=== PATIENT | female | born 1980 | race Caucasian/White ===

== ENCOUNTER → 2019-11-13 09:29 | Outpatient (CLI) | payer OTHER, SELFPAY ==
[2019-11-13 15:07] VITALS: BMI 40.8
== END ==
PROVIDERS: Visit Provider Nurse Practitioner
DX: I10 Essential (primary) hypertension (principal); I25.10 Atherosclerotic heart disease of native coronary artery without angina pectoris; E78.5 Hyperlipidemia, unspecified; R63.5 Abnormal weight gain

== ENCOUNTER → 2019-12-12 13:45 | Outpatient (CLI) | payer OTHER, SELFPAY ==
[2019-11-27 11:40] VITALS: BMI 40.8
--- NOTE | 2019-12-12 13:47 | ECHOD_ITS ---
Reason For Study: SOB Procedure This was a 2D Doppler, Color Flow transthoracic echocardiogram. Exam performed in department. Left Ventricle Normal LV size. Left ventricular systolic function is normal. The estimated ejection fraction is 55 %. Normal diastology for age. No regional wall motion abnormalities noted. Right Ventricle Normal RV size. Normal systolic function. Atria Normal left atrium. Normal right atrium. Mitral Valve Normal mitral valve. Tricuspid Valve Normal tricuspid valve. Aortic Valve Normal aortic valve. Trisinus/trileaflet aortic valve. Pulmonic Valve Normal pulmonic valve. Great Vessels Normal aortic root. The pulmonary artery is normal size. Normal inferior vena cava. Pericardium/Pleural No pericardial effusion. MMode/2D Measurements & Calculations LVIDd: 4.4 cm IVSd: 1.1 cm Ao root diam: 3.4 cm LVIDs: 2.9 cm LVPWd: 1.1 cm RVDd: 3.1 cm FS: 33.2 % LAV(MOD-bp): 39.2 ml LA A4 area: 15.6 cm2 LA dimension(2D): 3.8 cm LAV(MOD-bp) Indexed: 16.5 ml/m2 LAV(MOD-sp2): 37.5 ml LAV(MOD-sp4): 36.2 ml RA A4 area: 15.8 cm2 Doppler Measurements & Calculations MV E max dipak: 62.7 cm/sec Lat Peak E' Dipak: 14.4 cm/sec Med Peak E' Dipak: 7.4 cm/sec MV A max dipak: 57.8 cm/sec E/E' lat: 4.4 E/E' med: 8.4 MV E/A: 1.1 Ao V2 max: 137.9 cm/sec LV V1 max: 109.8 cm/sec PA V2 max: 99.5 cm/sec Ao max P.6 mmHg LV V1 max P.8 mmHg Interpretation Summary Normal LV size. Left ventricular systolic function is normal. The estimated ejection fraction is 55 %. Structurally normal valves. Ordering Physician: Erasto Velasco Referring Physician: Regla Diaz Performed By: Leslie Burns RDCS
== END ==
PROVIDERS: PCP Nurse Practitioner; Referring Provider Internal Medicine Cardiovascular Disease; Visit Provider Internal Medicine Cardiovascular Disease
DX: R06.00 Dyspnea, unspecified (principal); R06.02 Shortness of breath
CPT/HCPCS: 93306

== ENCOUNTER → 2023-07-11 | Outpatient (CLI) | payer OTHER, SELFPAY ==
--- NOTE | 2023-07-11 10:47 | VDLE_ITS ---
Reason For Study: BLE Pain RIGHT LEFT CFV is compressible, spontaneous, phasic, CFV is compressible, phasic, and INCOMPETENT competent and demonstrates normal for greater than 1.0 second. augmentation. FV is compressible, spontaneous, phasic, FV is compressible, spontaneous, phasic, competent and demonstrates normal competent and demonstrates normal augmentation. augmentation. POP V is compressible, spontaneous, phasic, POP V is compressible, spontaneous, phasic, competent and demonstrates normal competent and demonstrates normal augmentation. augmentation. T/P Trunk is compressible. T/P Trunk is compressible. PTV is compressible. PTV is compressible. LT PerV is compressible. RT PerV is compressible. SFJ is INCOMPETENT and measures 0.69 cm. SFJ is INCOMPETENT and measures 0.95 cm. GSV proximal thigh measures 0.24 x 0.21 cm. GSV proximal thigh measures 0.31 x 0.34 cm. GSV at knee measures 0.19 x 0.24 cm. GSV at knee measures 0.24 x 0.25 cm. ASV proximal thigh is INCOMPETENT for greater GSV is competent throughout. than 0.5 seconds and measures 0.43 x 0.43 cm. Two accessory branches noted off of SFJ. SSV proximal calf is competent and measures First appears to feed prox anterior thigh 0.23 x 0.27 cm. varicosities. Second leaves fascia and Nonvascularized anechoic area in the left pop returns at the knee to feed medial knee and fossa measuring approximately 4.88cm x prox calf varicosities. 1.37cm. . ASV 1 proximal thigh is INCOMPETENT for greater than 0.5 seconds and measures 0.63 x 0.65 cm. ASV 2 mid thigh is INCOMPETENT for greater than 0.5 seconds and measures 0.60 x 0.70 cm. ASV 2 at knee is INCOMPETENT for greater than 0.5 seconds and measures 1.03 x 1.73 cm. ASV 2 proximal calf is INCOMPETENT for greater than 0.5 seconds and measures 0.38 x 0.40 cm. SSV proximal calf is competent and measures 0.24 x 0.22 cm. . Nonvascularized anechoic area in the right pop fossa measuring approximately 3.15cm x 1.62cm noted. Area appears to extend to prox calf in between fascia layers. Procedure This is a venous duplex using B-mode, color flow and spectral Doppler. Exam performed in department. The exam was diagnostic. Patient was scanned in reverse Trendelenburg position during reflux assessment. VL/Venous Duplex US - Dany Extrem Interpretation Summary Deep veins of the bilateral lower extremities are patent and compressible segme ntally. There is no evidence of bilateral lower extremity deep vein thrombosis. The bilateral great saphenous veins appear patent and compressible segmentally. Positive for reflux in the right saphenofemoral junction and two accessory saph enous veins originating from the junction. Positive for reflux in the left common femoral vein, saphenofemoral junction, a nd thigh accessory saphenous vein. Nonvascularized anechoic area in the right pop fossa measuring approximately 3. 15cm x 1.62cm noted. Area appears to extend to proximal calf in between fascia layers. Nonvascularized anechoic area in the left pop fossa measuring approximately 4.8 8cm x 1.37cm. Ordering Physician: Celeste Multani Referring Physician: Regla Diaz Performed By: Lance Harden RVT
--- OUTSIDE RECORDS SUMMARY | 2023-07-12 00:04 | XMS RPT_ITS | CCD ---
Author Name Unknown Address [address] [place] [address] Organization [facility] Care Team Providers Care Track Watchman Name Role Phone Pending Provider Unavailable Unavailable Unavailable Unavailable Lyle NEMATOLOGIST.Jess KEY Primary Care Provide r GENA VASQUEZ Referring Unavailable JESS DIAZ Primary Care Unavailable GENA VASQUEZ Attending Unavailable JESS DIAZ Primary Care Unavailable SELF Referring Unavailable JESS DIAZ Primary Care Unavailable KEVIN WELLINGTON Attending Unavailable TAIWO DIAZA Reese Primary Care Unavailable JESS DIAZ Referring Unavailable LYLE JESS Reese Primary Care Unavailable LYLE JESS L Referring Unavailable LYLE JESS L Primary Care Unavailable Medications Completed/Discontinued Medications Medication Drug Class(es) Dates Sig (Normalized) Sig (Original) amoxicillin 875 mg oral tablet (6 sources) Penicillin-class Antibacterial Start: 01-10-2015 take 1 tablet by mouth once daily Amoxicillin 875 MG Oral Tablet TAKE 1 TABLET EVERY 12 HOURS DAILY. Quantity: 20 Refills: 0 Ordered: 15-Aug-2016 Carl Milton MD Start : 15-Aug-2016 Active MULTI-VITAMIN ORAL (2 sources) MULTI-VITAMIN ORAL Take by mouth. 0 Active Problems Problem Classification Problem Date Documented Date Episodic/Chronic Chronic obstructive pulmonary disease and bronchiectasis (2 sources) Bronchitis; Translations: [Bronchitis, not specified as acute or chronic] Episodic Deficiency and other anemia (1 source) Anemia, unspecified; Translations: [Relative anemia] Onset: 03-17-2023 Episodic Diverticulosis and diverticulitis (1 source) Diverticulitis of intestine, part unspecified, without perforation or abscess without bleeding; Translations: [Diverticulitis] Onset: 07-09-2022 Chronic Mood disorders (2 sources) Depressive disorder; Translations: [Depression] 06-08-2012 Chronic Other eye disorders (2 sources) Vitreous opacities; Translations: [Other vitreous opacities, unspecified eye] Onset: 07-16-2013 07-16-2013 Chronic Other female genital disorders (2 sources) Cervical intraepithelial neoplasia grade 2; Translations: [Moderate cervical dysplasia] 06-08-2012 Episodic Other non-traumatic joint disorders (1 source) Pain in right hip; Translations: [Pain in right hip] Onset: 06-01-2023 Episodic Other nutritional; endocrine; and metabolic disorders (2 sources) Obese class II; Translations: [Obesity, unspecified] Onset: 10-31-2022 10-31-2022 Chronic Other screening for suspected conditions (not mental disorders or infectious disease) (2 sources) Patient encounter status; Translations: [Encounter for screening mammogram for malignant neoplasm of breast] Onset: 11-03-2022 Episodic Other upper respiratory disease (2 sources) Nasal discharge; Translations: [Other disease of nasal cavity and sinuses] Episodic Other upper respiratory infections (6 sources) Acute sinusitis; Translations: [Acute sinusitis, unspecified] Episodic Spondylosis; intervertebral disc disorders; other back problems (1 source) Intervertebral disc disorders with radiculopathy, lumbar region; Translations: [Intervertebral disc disorders with radiculopathy, lumbar region] Onset: 06-01-2023 Episodic Viral infection (2 sources) Herpes labialis; Translations: [Herpesviral vesicular dermatitis] 06-08-2012 Episodic Results Test Name Value Interpretation Reference Range Facil ity Vital Signs Date Time Vital Sign Value Performing Clinician Faci lity 10-31-2022 08:23-0400 Body weight 110.13 kg Gena Vasquez MD Work Phone: [facility] 10-31-2022 08:23-0400 Diastolic blood pressure 62 mm[Hg] Gena Vasquez MD Work Phone: [facility] 10-31-2022 08:23-0400 Systolic blood pressure 90 mm[Hg] Gena Vasquez MD Work Phone: [facility] 01-11-2021 14:25-0400 Body height 177.8 cm Carl Milton MD Work Phone: [facility] Work Phone: 01-11-2021 14:25-0400 Body mass index (BMI) [Ratio] 38.74 kg/m2 Carl Milton MD Work Phone: [facility] Work Phone: 01-11-2021 14:25-0400 Body surface area Derived from formula 2.37 m2 Carl Milton MD Work Phone: [facility] Work Phone: 01-11-2021 14:25-0400 Body temperature 97.8 [degF] Carl Milton MD Work Phone: [facility] Work Phone: 01-11-2021 14:25-0400 Body weight 122.47 kg Carl Milton MD Work Phone: [facility] Work Phone: 01-11-2021 14:25-0400 Diastolic blood pressure 74 mm[Hg] Carl Milton MD Work Phone: [facility] Work Phone: 01-11-2021 14:25-0400 Heart rate 98 /min Carl Milton MD Work Phone: [facility] Work Phone: 01-11-2021 14:25-0400 Respiratory rate 16 /min Carl Milton MD Work Phone: [facility] Work Phone: 01-11-2021 14:25-0400 SaO2% (BldA) [Mass fraction] 97 % Carl Milton MD Work Phone: [facility] Work Phone: 01-11-2021 14:25-0400 Systolic blood pressure 122 mm[Hg] Carl Milton MD Work Phone: [facility] Work Phone: 01-11-2021 14:0400 1 1 Carl Milton MD Work Phone: [facility] Work Phone: Encounters Encounter Date Encounter Type Care Provider Facility Start: 06-01-2023 ambulatory JESS DIAZ Facil ity:[facility] Start: 06-01-2023 End: 06-01-2023 Subsequent hospital visit by physician [facility] Procedures Date Procedure Procedure Detail Performing Clinician Start: 06-01-2023 Radex hip unilateral with pelvis 2-3 views Jess Diaz NEMATOLOGIST.DATABASE PROGRAMMER ANALYST Work Phone: Plan of Treatment Date Care Activity Detail Author Start: 11-01-2027 Screening for malignant neoplasm of cervix [facility] Start: 11-04-2023 Screening for malignant neoplasm of breast Mammogram Screening [facility] Start: 12-30-[address] [facility] Start: [address] [facility] Start: 06-08-2017 HPV TESTING HPV TESTING [facility] Start: 06-08-2017 PAP TESTING PAP TESTING [facility] Start: [address] [facility] Start: 1998 HEPATITIS C SCREENING HEPATITIS C SCREENING [facility] Start: 1998 Hepatitis C screening Hepatitis C Screening [facility] Start: 1998 HIV SCREENING HIV SCREENING [facility] Start: 1998 HIV screening HIV Screening [facility] Start: 1980 COVID-19 VACCINE (#1) COVID-19 VACCINE (#1) [facility] Start: 1980 HEPATITIS B (1 of 3 - 3-dose series) HEPATITIS B (1 of 3 - 3-dose series) [facility] Start: 1980 Hepatitis B Vaccine (1 of 3 - 3-dose series) Hepatitis B Vaccine (1 of 3 - 3-dose series) [facility] End: 11-30-2023 ANGEL SCREENING W MAXINE ANGEL SCREENING [facility] Radiology Routine Encounter for screening mammogram for breast cancer 1 Occurrences starting 10/31/2022 until 11/30/2023 [facility] Work Phone: Payers Date Payer Category Payer Private Health Insurance [employer]ALAD[employer] [id number] 2022-Present [phone] [address] [place] [address] Open Access [id number] 2022 Private Health Insurance [id number] Unknown [facility] Social History Date Type Detail Facility Start: 10-31-2022 Current some day smoker Current some day smoker [facility] Work Phone: Start: 10-31-2022 Tobacco smoking stat [facility] Ex-smoker [facility] Work Phone: History of tobacco use Current smoker [facility] Work Phone: History of tobacco use Cigarette Smoker [facility] Work Phone: Start: 10-31-2022 Tobacco use and exposure Smokeless tobacco non-user [facility] Work Phone: Start: 10-31-2022 Alcohol intake Ex-drinker (finding) [facility] Start: 07-09-2022 Tobacco Comment quit 4 years ago [facility] Start: 1980 Sex Assigned At Not on file [facility] Start: 10-31-[address] [facility] National Score (1-100), lower number is lower risk [address] [facility] Progress note 06-01-2023 Note Date & Type Note Facility 06-01-2023 Note HNO ID: [id number] Author: ASHLEIGH JUAREZ RT(R) Service: ? Author Type: Technologist Type: Progress Notes Filed: 06/01/2023 15:02 Note Text: Radiology Service Progress Note PATIENT NAME: Alexus Fleming DATE OF SERVICE: June 01, 2023 TIME: 3:02 PM PATIENT IDENTITY VERIFICATION COMPLETED USING TWO (2) IDENTIFIERS: Name and Date of confirmed by patient verbally. FALL SCREENING: Has the patient had 2 falls in the last year or 1 fall with injury or currently using an Ambulatory Assistive Device (Walker, Cane, Wheelchair, Crutches, etc.)? No PATIENT GENDER DATA: Female. status: : No status: NO. PATIENT RELEVANT IMPLANT DATA REVIEWED: Not Applicable PATIENT PRESENTS WITH AN IMPLANTABLE OR ATTACHED HOME HEALTH NURSE LICENSED PRACTICAL: No RADIOLOGY DEPARTMENT: General X-ray: Exam(s) Completed: Pelvis X-Ray: Pelvis with Hip Right PERIPHERAL IV DATA: Not applicable SIGNED BY: RT Chencho(R) June 01, 2023 3:02 PM [facility] History of Present illness Narrative 06-01-2023 Ashleigh Juarez RT(R) - 06/01/2023 2:30 PM EST Note Date & Type Note Facility 06-01-2023 History of Presen t illness Narrative Radiology Service Progress Note PATIENT NAME: Alexus Fleming DATE OF SERVICE: June 01, 2023 TIME: 3:02 PM PATIENT IDENTITY VERIFICATION COMPLETED USING TWO (2) IDENTIFIERS: Name and Date of confirmed by patient verbally. FALL SCREENING: Has the patient had 2 falls in the last year or 1 fall with injury or currently using an Ambulatory Assistive Device (Walker, Cane, Wheelchair, Crutches, etc.)? No PATIENT GENDER DATA: Female. status: : No status: NO. PATIENT RELEVANT IMPLANT DATA REVIEWED: Not Applicable PATIENT PRESENTS WITH AN IMPLANTABLE OR ATTACHED HOME HEALTH NURSE LICENSED PRACTICAL: No RADIOLOGY DEPARTMENT: General X-ray: Exam(s) Completed: Pelvis X-Ray: Pelvis with Hip Right PERIPHERAL IV DATA: Not applicable SIGNED BY: RT Chencho(R) June 01, 2023 3:02 PM documented in this encounter [facility] Progress note 11-03-2022 Note Date & Type Note Facility 11-03-2022 Note HNO ID: [id number] Author: Barbara Ellington Service: ? Author Type: Salmon Gillnet Vessel Operator Type: Progress Notes Filed: 11/03/2022 11:39 AM Note Text: Radiology Service Progress Note PATIENT NAME: Alexus Fleming DATE OF SERVICE: November 03, 2022 TIME: 11:13 AM PATIENT IDENTITY VERIFICATION COMPLETED USING TWO (2) IDENTIFIERS: Name and Date of confirmed by patient verbally. FALL SCREENING: Has the patient had 2 falls in the last year or 1 fall with injury or currently using an Ambulatory Assistive Device (Walker, Cane, Wheelchair, Crutches, etc.)? No PATIENT GENDER DATA: Female. status: : No status: NO. PATIENT RELEVANT IMPLANT DATA REVIEWED: Not Applicable RADIOLOGY DEPARTMENT: Mammography PERIPHERAL IV DATA: Not applicable SIGNED BY: Victoria Paris [employer] November 03, 2022 11:13 AM [facility] Progress note 10-31-2022 Note Date & Type Note Facility 10-31-2022 Note HNO ID: [id number] Author: Gena Vasquez MD Service: ? Author Type: Physician Type: Progress Notes Filed: 10/31/2022 10:28 AM Note Text: Alexus is a 42 year old who presents for ER follow up after diverticulitis flare AND noted a 2.5cm ovarian cyst (left); she is well overdue for an annual gynecologic exam. We can accomodate this today AND she wishes to proceed. She is with complaints, dysmenorrhea- management options reviewed, she will continue with observation. Thorough past history obtained/updated/reviewed with today's visit. Pt states changes to her past history include: diverticulitis. Box Lining Machine Feeder offered: Patient declines. She is a previously established patient of [facility]within [facility], however last seen by me more than 3 years ago (2013). Menses: cycles every ~30 days and ~5 days of moderate flow, mod dysmenorrhea (treated with NSAIDs). 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) PAST SURGICAL HISTORY Procedure Laterality Date COLONOSCOPY SCREENING CRYOCAUTERY OF CERVIX 05/01/2006 DENISA 1 OFFICE LEEP 05/01/2005 DENISA 2 FAMILY HISTORY Problem Relation Age of Onset None Mother Heart Father Heart Maternal Grandmother None Daughter None Son Breast Cancer No Family History Cervical Cancer No Family History Ovarian cancer No Family History Uterine Cancer No Family History Colon Cancer No Family History Pancreatic Cancer No Family History Prostate Cancer No Family History SOCIAL HISTORY Social History Tobacco Use Smoking status: Former Types: Cigarettes Smokeless tobacco: Never Tobacco comments: quit 4 years ago Vaping Use Vaping Use: Never used Substance Use Topics Alcohol use: Not Currently Drug use: No REVIEW OF SYSTEMS Abdomen: No abdominal pain, nausea, vomiting, diarrhea; chronic issues with constipation due to meds Bladder: No dysuria, gross hematuria, urinary frequency, urinary urgency, or incontinence. Breast: No breast lumps, nipple d/c, overlying skin changes, redness or skin retraction and +/-SBE normal. Allergies and current medication updated:Yes EXAM: BP 90/62 Wt 242 lb 12.8 oz (110.1kg) LMP 10/31/2022 GENERAL: pleasant, female in no apparent distress HEENT: Normocephalic, atraumatic, mucus membranes moist, and no lesions NECK: Supple, full range of motion, no adenopathy, and thyroid normal DERMATOLOGY: Normal, without lesions, non-icteric, and non-hirsute BREAST: soft, non-tender, symmetric, no dominant mass, normal nipple-areolar complex, no lymphadenopathy, and no nipple discharge CHEST: Clear to auscultation, Normal inspiratory effort, and Regular rate and rhythm ABDOMEN: soft, non-tender, and no masses PELVIC: external genitalia normal, normal Bartholin's glands, urethra, Thatcher's glands, no vulvar lesions, no cervical lesions, physiologic discharge present, normal appearing perineal body and perianal region BIMANUAL: uterus normal size, shape and consistency, no adnexal masses, and non-tender RECTOVAGINAL: deferred. NEURO: alert and oriented x3,exam grossly non-focal EXTREMITIES: normal ASSESSMENT/PLAN: 1) Health maintenance: Pap done with HPV. Mammogram starting age 40. Nutrition, exercise and routine health maintenance exams reviewed. Calcium/Vitamin D supplementation information provided. If has recurring issues that seem ovarian pain will consider US to further assess. 2) Contraception: vasectomy. 3) STD screening: Declined STD check. 4) Follow up one year or sooner as needed 5) Pt made aware that we will notify of Abnormal results only. I will use her MyChart as needed for results, she may contact office to get any results at her convenience. Gena Vasquez MD [facility] Instructions 10-31-2022 Patient Instructions Note Date & Type Note Facility 10-31-2022 Instructions Gena Vasquez MD - 10/31/2022 9:17 AM EDT Please call to schedule your mammogram ACOG Screening Guidelines The following health screening schedule is recommended by the [employer] (ACOG). Some of these tests may be ordered or performed by your primary care doctor. Pap test screening The pap test looks at cells on the cervix (the opening from the vagina to the uterus) to look for cancer or pre-cancerous changes. These changes are caused by the human papillomavirus (HPV). Studies estimate that half of all women will test positive for this virus within 3 years of starting sexual activity. For young women with a normal immune system, 90% of HPV infections will resolve within 2 years. There is a vaccine available against some forms of HPV. This is recommended for girls and women age 9-45. For ages 9-14, two injections are given at 0 and 6 months. For ages 15-45, three injections are given at 0,2 and 6 months. Because this vaccine does not protect against all HPV types which can cause cervical cancer, women who received the vaccine still need pap tests. Pap smear screening should be started at age 21. The pap test should be done every 3 years from age 21-29. From age 30-65, pap smears can be done every 5 years if HPV test is negative or every 3 years if HPV testing is not done. For women over the age of 65, ACOG recommends against screening women who have had adequate prior screening and are not otherwise at high risk for cervical cancer. Women who have had a hysterectomy also do not need routine pap smear screening unless the pap smear was done for a cervical cancer or moderate to severe dysplasia. Breast cancer screening Mammogram should be performed every 1-2 years starting at age 40 and every year starting at age 50. Screening may be started earlier depending on family history. Cholesterol screening Lipid panel (cholesterol test) should be checked every 5 years starting at age 45. Diabetes screening Fasting glucose (blood sugar) test should be performed every 3 years starting at age 45. Colorectal cancer screening Starting at age 45, women should have a screening colonoscopy at least every 10 years. Screening may be started earlier depending on family history. Thyroid screening Thyroid function test (TSH) should be checked every 5 years starting at age 50. Bone mineral density screening All postmenopausal women age 65 and over and postmenopausal women with risk factors for osteoporosis should have a bone mineral density test performed. Risk factors include race, family history of osteoporosis, personal history of fractures, poor nutrition, smoking, heavy alcohol use, early menopause, low calcium intake and low body weight. Certain medical conditions and long-term use of some medications may also increase risk. Calcium and Vitamin D Supplementation (from the National Institutes of Health Office of Dietary Supplements 2011) Calcium is required by the body for blood vessel, muscle, hormone and nerve functioning. Most of the body's calcium is stored in the bones and teeth where it supports structure and function. Bone is continuously broken down and reformed. When bone breakdown exceeds formation, especially in postmenopausal women, bone loss can increase the risk of osteoporosis and fractures. In addition to low calcium intake, women who smoke, have a family history of osteoporosis, are thin, or , or who take certain medications such as cancer chemotherapy, seizure mediations and steroids are at increased risk of osteoporosis. The calcium requirements in women change with age. The National Institutes of Health (NIH) recommends: 1000mg elemental calcium for premenopausal women age 19-50 1200mg elemental calcium for postmenopausal women and all women over 50 Milk, yogurt, and cheese are rich natural sources of calcium and are the major food contributors in the [place]. For example, 8oz of milk (whole, lowfat or skim) contains about 300mg calcium, 8oz of yogurt contains 415mg. Nondairy sources include salmon and sardines and vegetables, such as [place] cabbage, kale, and broccoli. Foods fortified with calcium include many fruit juices, tofu and cereals. For more food calcium content information, visit http://ods.od.nih.gov/factsheets/calcium. Calcium supplements come in several different forms. Remember that the recommendations are for millgrams (mg) of elemental calcium which may be less than the total weight of the supplement. The amount of elemental calcium is required to be printed on the label. Calcium carbonate is the least expensive form. It must be taken on a full stomach to be properly absorbed. Some patients may experience gas or constipation. Calcium phosphate and calcium citrate may be taken either with or without food and tend to have less side effects but are generally more expensive. Because of its ability to neutralize stomach acid, calcium carbonate is found in some [id number] antacid products, such as Tums and Rolaids . Depending on its strength, each chewable pill or softchew provides 200 to 400 mg of elemental calcium. The percentage of calcium absorbed depends on the total amount of elemental calcium consumed at one time. Absorption is highest in doses <500mg. So a woman who takes 1,000mg/day of calcium from supplements should split the dose and take 500mg at two separate times during the day. Too much calcium can cause kidney stones, constipation, difficulty absorbing other nutrients and calcium buildup in blood vessels. Women under 50 should not exceed 2500mg/day (2000mg/day for women over 50) of calcium from food and supplements. Excessive alcohol and caffeine intake can inhibit absorption of calcium. Calcium can reduce the absorption of some medications if taken at the same time of day (bisphosphonates, thyroid medication, Phenytoin and other seizure medications, some antibiotics and iron supplements). Vitamin D promotes calcium absorption in the gut and maintains adequate blood levels of calcium and phosphate for normal bone growth and bone remodeling. Vitamin D also helps regulate cell growth as well as nerve, muscle and immune system function. Vitamin D is produced in the skin as a result of ultraviolet sunlight rays and must be altered in the liver and kidney to become its active form. Recommended intake according to the National Institutes of Health is 600 International Units (IU) for girls and women ages 1-70 and 800 IU for women over 70. Very few foods in nature contain vitamin D. The flesh of fatty fish (such as salmon, tuna, and mackerel) and fish liver oils are among the best sources. Small amounts of vitamin D are found in beef liver, cheese, mushrooms and egg yolks. Most people meet at least some of their vitamin D needs through exposure to sunlight. Season, time of day, length of day, cloud cover, smog, skin melanin content, and sunscreen are among the factors that affect UV radiation exposure and vitamin D synthesis. Despite the importance of the sun for vitamin D synthesis, it is prudent to limit exposure of skin to sunlight and avoid tanning beds. UV radiation is a carcinogen responsible for most of the estimated 1.5 million skin cancers that occur annually in the [place]. Lifetime cumulative UV damage to skin is also responsible for some age-associated dryness and other cosmetic changes. In supplements and fortified foods, vitamin D is available in two forms, D2 (ergocalciferol) and D3 (cholecalciferol). The two are equivalent at normal supplement doses. For women who require high supplement doses because of vitamin D deficiency, D3 may work better to raise blood levels. Some medications can prevent proper absorption of Vitamin D. These include laxatives, corticosteroids like prednisone, the seizure drugs phenobarbital and phenytoin, the weight-loss drug orlistat ( Xenical and AlliTM) and the cholesterol-lowering drug cholestyramine (Questran , LoCholest , and Prevalite ). Talk to your doctor about adjusting your recommended daily vitamin D dosage if you take these medications. You should not exceed 4000 mg of vitamin D supplementation daily unless specifically prescribed by your doctor. documented in this encounter [facility] History of Present illness Narrative 10-31-2022 Gena Vasquez MD - 10/31/2022 8:39 AM EDT Note Date & Type Note Facility 10-31-2022 History of Presen t illness Narrative Alexus is a 42 year old who presents for ER follow up after diverticulitis flare & noted a 2.5cm ovarian cyst (left); she is well overdue for an annual gynecologic exam. We can accomodate this today & she wishes to proceed. She is with complaints, dysmenorrhea- management options reviewed, she will continue with observation. Thorough past history obtained/updated/reviewed with today's visit. Pt states changes to her past history include: diverticulitis. Box Lining Machine Feeder offered: Patient declines. She is a previously established patient of [facility]within [facility], however last seen by me more than 3 years ago (2013). Menses: cycles every ~30 days and ~5 days of moderate flow, mod dysmenorrhea (treated with NSAIDs). 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) PAST SURGICAL HISTORY Procedure Laterality Date COLONOSCOPY SCREENING CRYOCAUTERY OF CERVIX 05/01/2006 DENISA 1 OFFICE LEEP 05/01/2005 DENISA 2 FAMILY HISTORY Problem Relation Age of Onset None Mother Heart Father Heart Maternal Grandmother None Daughter None Son Breast Cancer No Family History Cervical Cancer No Family History Ovarian cancer No Family History Uterine Cancer No Family History Colon Cancer No Family History Pancreatic Cancer No Family History Prostate Cancer No Family History SOCIAL HISTORY Social History Tobacco Use Smoking status: Former Types: Cigarettes Smokeless tobacco: Never Tobacco comments: quit 4 years ago Vaping Use Vaping Use: Never used Substance Use Topics Alcohol use: Not Currently Drug use: No REVIEW OF SYSTEMS Abdomen: No abdominal pain, nausea, vomiting, diarrhea; chronic issues with constipation due to meds Bladder: No dysuria, gross hematuria, urinary frequency, urinary urgency, or incontinence. Breast: No breast lumps, nipple d/c, overlying skin changes, redness or skin retraction and +/-SBE normal. Allergies and current medication updated:Yes EXAM: BP 90/62 Wt 242 lb 12.8 oz (110.1kg) LMP 10/31/2022 GENERAL: pleasant, female in no apparent distress HEENT: Normocephalic, atraumatic, mucus membranes moist, and no lesions NECK: Supple, full range of motion, no adenopathy, and thyroid normal DERMATOLOGY: Normal, without lesions, non-icteric, and non-hirsute BREAST: soft, non-tender, symmetric, no dominant mass, normal nipple-areolar complex, no lymphadenopathy, and no nipple discharge CHEST: Clear to auscultation, Normal inspiratory effort, and Regular rate and rhythm ABDOMEN: soft, non-tender, and no masses PELVIC: external genitalia normal, normal Bartholin's glands, urethra, Thatcher's glands, no vulvar lesions, no cervical lesions, physiologic discharge present, normal appearing perineal body and perianal region BIMANUAL: uterus normal size, shape and consistency, no adnexal masses, and non-tender RECTOVAGINAL: deferred. NEURO: alert and oriented x3,exam grossly non-focal EXTREMITIES: normal ASSESSMENT/PLAN: 1) Health maintenance: Pap done with HPV. Mammogram starting age 40. Nutrition, exercise and routine health maintenance exams reviewed. Calcium/Vitamin D supplementation information provided. If has recurring issues that seem ovarian pain will consider US to further assess. 2) Contraception: vasectomy. 3) STD screening: Declined STD check. 4) Follow up one year or sooner as needed 5) Pt made aware that we will notify of Abnormal results only. I will use her MyChart as needed for results, she may contact office to get any results at her convenience. Gena Vasquez MD documented in this encounter [facility] Evaluation note Note Date & Type Note Facility documented in this encounter [facility] History of Present illness Narrative Note Date & Type Note Facility History of Present illness Narrative 40-year-old female with a 4-day history of upper respiratory symptoms with congestion, postnasal drip, and a reactive cough. No sinus pressure or fever. She has not been Covid vaccinated. No loss of taste or smell. No known exposures. Review of systems is otherwise negative for constitutional, ear nose and throat, neck, heart, lungs, and abdomen. [facility] Work Phone: Reason for referral (narrative) Diagnostic Procedure Only (Routine) - Authorized Note Date & Type Note Facility Referral ID Status Reason Start Date Expiration Date Visits Requested Visits Authorized [id number] Authorized Auto-Generat ed Referral 10/31/2022 11/30/[address] [facility] Summary Purpose Family History No Family History Records FoundNo Family History Records FoundNo Family History Records FoundNo Family History Records FoundNo Family History Records Found Advance Directives No Advanced Directives Records FoundNo Advanced Directives Records FoundNo Advanced Directives Records FoundNo Advanced Directives Records FoundNo Advanced Directives Records Found Additional Source Comments INFORMATION SOURCE (unrecogn ized section and content) DATE CREATED AUTHOR AUTHOR'S ORGANIZ ATION 01/13/2021 [employer] DATE CREATED AUTHOR AUTHOR'S ORGANIZ ATION 11/10/2022 [facility] DATE CREATED AUTHOR AUTHOR'S ORGANIZ ATION 02/05/2023 [facility] DATE CREATED AUTHOR AUTHOR'S ORGANIZ ATION 06/03/2023 [facility] Source Comments (unrecognize d section and content) In the event this informatio n is protected by the Federal Confidentiality of Alcohol and Drug Abuse Patient Records regulations: The Federal rules restrict any use of the information to criminally investigate or prosecute any alcohol or drug abuse patient[facility] event this information is protected by the Federal Confidentiality of Alcohol and Drug Abuse Patient Records regulations: The Federal rules restrict any use of the information to criminally investigate or prosecute any alcohol or drug abuse patient.[facility] Reason for Visit (unrecogniz ed section and content) Care Teams (unrecognized sec tion and content) Track Watchman Relationship Specialty Start Date End Date Jess Diaz, HUBERT.SHAHID [address] [facility] [address] [place] [address] PCP - General Family Medicine 07/16/13 FOR RECORDS PERTAINING TO PATIENTS WHO ARE OR HAVE BEEN ENROLLED IN A CHEMICAL DEPENDENCY/SUBSTANCEABUSE PROGRAM, SOME INFORMATION MAY BE OMITTED. This clinical summary was aggregated from multiple sources. Caution should be exercised in using it in the provision of clinical care. This summary normalizes information from multiple sources, and as a consequence, information in this document may materially change the coding, format and clinical context of patient data. In addition, data may be omitted in some cases. CLINICAL DECISIONS SHOULD BE BASED ON THE PRIMARY CLINICAL RECORDS. [facility] [facility]. provides no warranty or guarantee of the accuracy or completeness of information in this document.
== END | disposition home or self-care (01) ==
PROVIDERS: PCP Nurse Practitioner; Referring Provider Physician Assistant; Visit Provider Physician Assistant
DX: I83.813 Varicose veins of bilateral lower extremities with pain (principal)
CPT/HCPCS: 93970

== ENCOUNTER → 2024-05-10 | Outpatient (CLI) | payer OTHER, SELFPAY ==
[2024-05-10 09:01] LABS: Cholesterol 136 mg/dL (200); High Density Lipoprotein 63 mg/dL; Triglycerides 67 mg/dL; Very Low Density Lipoprotein 13 mg/dL (5-40)
== END | disposition home or self-care (01) ==
PROVIDERS: PCP Nurse Practitioner; Referring Provider Nurse Practitioner; Visit Provider Nurse Practitioner
DX: E78.49 Other hyperlipidemia (principal)